=== PATIENT | female | born 1990 | race Caucasian/White ===

== ENCOUNTER 2016-06-14 15:44 | Emergency (ER) | payer OTHER ==
[~2016-06-14] VITALS: Ht 167.6 cm; Wt 60.0 kg
[2016-06-14 15:45] VITALS: BP 120/66; PULSE 100; RESP 16; TEMP 98.2; O2SAT 98
--- NOTE | 2016-06-14 16:23 | PD ---
HPI . right groin cyst and vaginal discharge since March with exposure to 2 STDs Chief Complaint: Skin Problem Time Seen by Provider: 16:23 Travel History International Travel<30 days: No Contact w/Intl Traveler<30days: No Traveled to known affect area: No History of Present Illness HPI 25-year-old female who is a recovering addict here with complaints of right labial boil and vaginal discharge since March with exposure to STDs. Patient tells me that she is 100% certain that she came into contact with trichomoniasis as well as chlamydia. She states this happened back in March and she has not been able to seek treatment and she has been in rehabilitation. She is complaining of vaginal discharge since. [facility] Social History Tobacco Use: Yes Allergies-Medications (Allergen,Severity, Reaction): Coded Allergies: No Known Allergies (Unverified , 06/14/16) Reported Meds & Prescriptions Reported Meds & Active Scripts Active Reported Zoloft (Sertraline HCl) 25 Mg Tab 25 Mg PO DAILY Trazodone (Trazodone HCl) 50 Mg Tab 50 Mg PO HS Review of Systems General / Constitutional: No: Fever Eyes: No: Visual changes HENT: No: Headaches Cardiovascular: No: Chest Pain or Discomfort Respiratory: No: Shortness of Breath Gastrointestinal: No: Abdominal Pain Genitourinary: Positive: Discharge, No: Dysuria Musculoskeletal: No: Pain Skin: No Rash Neurologic: No: Weakness Psychiatric: No: Depression Endocrine: No: Polydipsia Hematologic/Lymphatic: No: Easy Bruising Physical Exam Narrative GENERAL: AAO x 3, no acute distress, Well-nourished, well-developed patient. SKIN: Warm and dry. No visible rashes or bruising. HEAD: Normocephalic and atraumatic. EYES: No scleral icterus. No injection or drainage. ENT: No nasal drainage noted. Mucous membranes pink. Airway patent. NECK: Supple, trachea midline. No JVD. CARDIOVASCULAR: Regular rate and rhythm without murmurs, gallops, or rubs. RESPIRATORY: Breath sounds equal bilaterally. No accessory muscle use. No rhonchi or rales. GASTROINTESTINAL: visual inspection is normal. GENITAL: external exam only: there is a small ingrown hair follicle on the right outer labia. Pelvic exam not performed. EXTREMITIES: No cyanosis or edema. BACK: Nontender without obvious deformity. No CVA tenderness. PSYCH: AAO x 3, normal affect. Data Data Last Documented VS Vital Signs Date Time Temp Pulse Resp B/P Pulse Ox O2 Delivery O2 Flow Rate FiO2 06/14/16 15:45 98.2 100 16 120/66 98 Room Air Orders Gc And Chlamydia Pcr (06/14/16 18:29) Wet Prep Profile (06/14/16 18:29) MDM Medical Decision Making Medical Screen Exam Complete: Yes Emergency Medical Condition: Yes Medical Record Reviewed: Yes (no prior) Differential Diagnosis folliculitis, vaginal discharge, trichomoniasis, chlamydia, PID Narrative Course 25-year-old female who is a recovering addict here with complaints of right labial boil and vaginal discharge since March with exposure to STDs. Patient tells me that she is 100% certain that she came into contact with trichomoniasis as well as chlamydia. She states this happened back in March and she has not been able to seek treatment and she has been in rehabilitation. She is complaining of vaginal discharge since. Patient seen and examined. She has a small folliculitis on the right outer labia. There is not an abscess formation. I could not perform pelvic examination, due to limitations in our exam room. Patient will need to be transferred to a medical bed for further workup and treatment. That medical provider will determine her disposition. Condition: Stable Lilly Hackett Jun 14, 2016 16:23
[2016-06-14] MEDS ORDERED: TRAZ50TA12 PO (16:44)
[2016-06-14] MEDS ORDERED: ZOLO25TA PO (16:44)
--- NOTE | 2016-06-14 17:49 | PD ---
HPI Chief Complaint: Skin Problem Time Seen by Provider: 17:47 Travel History International Travel<30 days: No Contact w/Intl Traveler<30days: No Traveled to known affect area: No History of Present Illness HPI Patient is a 25-year-old female that presented to the emergency department for evaluation of vaginal discharge. Patient states she was exposed to chlamydia and trichomoniasis in March when she was home. Since that time, she states that she was in rehabilitation and did not get treated. She denies any abdominal pain, nausea, vomiting, dysuria. Her last menstrual cycle was 2 weeks ago PFS Past Medical History Depression: Yes Diminished Hearing: No Tetanus Vaccination: < 5 Years Influenza Vaccination: No ?: Not LMP: 2 weeks ago Past Surgical History Surgical History: No Previous Surgery Social History Alcohol Use: No Tobacco Use: Yes (1/2ppd) Substance Use: No Allergies-Medications (Allergen,Severity, Reaction): Coded Allergies: No Known Allergies (Unverified , 06/14/16) Reported Meds & Prescriptions Reported Meds & Active Scripts Active Reported Zoloft (Sertraline HCl) 25 Mg Tab 25 Mg PO DAILY Trazodone (Trazodone HCl) 50 Mg Tab 50 Mg PO HS Review of Systems Except as stated in HPI: all other systems reviewed are Neg Gastrointestinal: No: Nausea, Abdominal Pain Genitourinary: Positive: Discharge, No: Frequency, Dysuria, Pelvic Pain, Vaginal Bleeding Physical Exam Narrative GENERAL: Well-nourished, well-developed patient. SKIN: Focused skin assessment warm/dry. HEAD: Normocephalic. EYES: No scleral icterus. No injection or drainage. NECK: Supple, trachea midline. No JVD or lymphadenopathy. CARDIOVASCULAR: Regular rate and rhythm without murmurs, gallops, or rubs. RESPIRATORY: Breath sounds equal bilaterally. No accessory muscle use. GASTROINTESTINAL: Abdomen soft, non-tender, nondistended. MUSCULOSKELETAL: No cyanosis, or edema. BACK: Nontender without obvious deformity. No CVA tenderness. Data Data Last Documented VS Vital Signs Date Time Temp Pulse Resp B/P Pulse Ox O2 Delivery O2 Flow Rate FiO2 06/14/16 15:45 98.2 100 16 120/66 98 Room Air Orders Gc And Chlamydia Pcr (06/14/16 18:29) Wet Prep Profile (06/14/16 18:29) Urinalysis - C+S If Indicated (06/14/16 18:48) Labs Laboratory Tests Test 06/14/16 06/14/16 16:53 18:33 Urine Color LIGHT-YELLOW Urine Turbidity CLEAR Urine pH 7.5 Urine Specific [place] 1.015 Urine Protein TRACE mg/dL Urine Glucose (UA) NEG mg/dL Urine Ketones NEG mg/dL Urine Occult Blood NEG Urine Nitrite NEG Urine Bilirubin NEG Urine Urobilinogen LESS THAN 2.0 MG/DL Urine Leukocyte Esterase NEG Urine RBC 1 /hpf Urine WBC LESS THAN 1 /hpf Microscopic Urinalysis Comment CULT NOT INDICATED Clue Cells (Wet Prep) NONE SEEN Vaginal Trichomonas (Wet Prep) NONE SEEN Vaginal Yeast (Wet Prep) NONE SEEN MDM Medical Decision Making Medical Screen Exam Complete: Yes Emergency Medical Condition: Yes Interpretation(s) Laboratory Tests Test 06/14/16 06/14/16 16:53 18:33 Urine Color LIGHT-YELLOW Urine Turbidity CLEAR Urine pH 7.5 Urine Specific [place] 1.015 Urine Protein TRACE mg/dL Urine Glucose (UA) NEG mg/dL Urine Ketones NEG mg/dL Urine Occult Blood NEG Urine Nitrite NEG Urine Bilirubin NEG Urine Urobilinogen LESS THAN 2.0 MG/DL Urine Leukocyte Esterase NEG Urine RBC 1 /hpf Urine WBC LESS THAN 1 /hpf Microscopic Urinalysis Comment CULT NOT INDICATED Clue Cells (Wet Prep) NONE SEEN Vaginal Trichomonas (Wet Prep) NONE SEEN Vaginal Yeast (Wet Prep) NONE SEEN Vital Signs Date Time Temp Pulse Resp B/P Pulse Ox O2 Delivery O2 Flow Rate FiO2 06/14/16 15:45 98.2 100 16 120/66 98 Room Air Differential Diagnosis STD versus PID versus Leukorrhea versus other Narrative Course Patient is a 22-year-old female presenting to emergency room for evaluation of vaginal discharge and dysuria. Patient states her symptoms started March and she believes she was exposed to chlamydia and trichomoniasis. She denies any pelvic pain, nausea, vomiting, fever, chills. Vital signs are stable. Pelvic exam performed, there was brown milky discharge noted in vaginal vault. No cervical motion tenderness, no adnexal tenderness or masses noted and bimanual examination. GC and chlamydia pending. Patient will be treated empirically. She is encouraged to follow up with [facility] for further STD screening. She is encouraged to avoid intercourse. She is encouraged to return to emergency department for any new or worsening symptoms. She verbalized understanding of these instructions. Patient is stable for discharge. Diagnosis Primary Impression: STD exposure Referrals: [facility] Dept. Patient Instructions: General Instructions, Safe Sex (ED), Sexually Transmitted Diseases (ED) Additional Instructions: Follow up at the health department for further screening for sexually transmitted infections You will be notified if Chlamydia and/or gonorrhea or positive Return to emergency department for any new or worsening symptoms Med/Other Pt SpecificInfo: No Change to Meds Disposition: 01 DISCHARGE HOME Condition: Stable Gema Pan [facility] Jun 14, 2016 17:49
[2016-06-14 19:07] LABS: BLOOD, URINE NEG (NEG); GLUCOSE,URINE NEG (NEG); KETONE, URINE NEG (NEG); NITRITE,URINE NEG (NEG); PH, URINE 7.5 (5.0-8.5); URINE COLOR LIGHT-YELLOW (YELLW/STRAW)
[2016-06-14 19:08] LABS: COMMENT (UR) CULT NOT INDICATED; CULTURE IF INDICATED CULT NOT INDICATED
[2016-06-14] MEDS ORDERED: AZITHROMYCIN PWD FOR SUSP 1 GM PACKET PO ONE (19:15)
[2016-06-14] MEDS ORDERED: cefTRIAXone 250 MG VIAL IM ONE (19:15)
[2016-06-14] MEDS ORDERED: LIDOCAINE HCL 1% 50 ML VIAL IM ONE (19:15)
[2016-06-14 19:42] VITALS: BP 108/72; PULSE 68; RESP 18; O2SAT 100
[2016-06-14 22:39] LABS: CHLAMYDIA PCR NOT DETECTED (NOT DETECT); NEISSERIA PCR NOT DETECTED (NOT DETECT)
== END 2016-06-14 20:15 | disposition home or self-care (01) ==
LOC: NEPD 15:44
DX: L73.8 Other specified follicular disorders (principal); Z20.2 Contact with and (suspected) exposure to infections with a predominantly sexual mode of transmission; F17.210 Nicotine dependence, cigarettes, uncomplicated; F19.21 Other psychoactive substance dependence, in remission; F41.9 Anxiety disorder, unspecified
CPT/HCPCS: 81001; 87210; 87491; 87591; 96372; 99283; J0696

== ENCOUNTER 2016-06-15 11:22 | Emergency (ER) | payer OTHER ==
[~2016-06-15] VITALS: Ht 167.6 cm; Wt 60.0 kg
[~2016-06-15 11:22] MED LIST: TRAZ50TA12 PO; ZOLO25TA PO
[2016-06-15 11:24] VITALS: BP 119/68; PULSE 86; RESP 16; TEMP 98.7; O2SAT 99
--- NOTE | 2016-06-15 11:51 | PD ---
Physical Exam Date Seen by Provider: Jun 15, 2016 Time Seen by Provider: 11:47 Narrative 25 year old female presents to the emergency department for evaluation of "my right ovary hurts and my uterus feels like it is burning". She states she was seen yesterday and a pelvic exam was completed. She states she was unable to get an outpatient appointment today so she came back for further testing. She says she is concerned because uterine cancer and ovarian cysts run in her family. Vital signs reviewed. Patient awaiting bed placement. Data Data Last Documented VS Vital Signs Date Time Temp Pulse Resp B/P Pulse Ox O2 Delivery O2 Flow Rate FiO2 06/15/16 11:24 98.7 86 16 119/68 99 Room Air [facility] Supervised Visit with NIKOLAY: Joann Turner Jun 15, 2016 11:51
--- NOTE | 2016-06-15 12:18 | PD ---
HPI Chief Complaint: [employer] Advocate Problem/Complaint Time Seen by Provider: 12:11 Travel History International Travel<30 days: No Contact w/Intl Traveler<30days: No Traveled to known affect area: No History of Present Illness HPI Patient is a 25-year-old female presenting to emergency for evaluation of right ovary pain. Patient states that she was told by CUSTOMER ACCOUNT SPECIALIST's office this morning to return to emergency department for evaluation. Patient also reports that her mother told her they have a history of "female cancer" in their family and she needs to get further evaluated. Patient has no other complaints at this time. Patient last menstrual cycle was 2 weeks ago, she has had pain similar to this in the past. Pain has been present for 2 days and is dull and aching. PFSH Past Medical History Depression: Yes Diminished Hearing: No Social History Alcohol Use: No Tobacco Use: Yes Substance Use: No Allergies-Medications (Allergen,Severity, Reaction): Coded Allergies: No Known Allergies (Unverified , 06/14/16) Reported Meds & Prescriptions Reported Meds & Active Scripts Active Reported Zoloft (Sertraline HCl) 25 Mg Tab 25 Mg PO DAILY Trazodone (Trazodone HCl) 50 Mg Tab 50 Mg PO HS Review of Systems Except as stated in HPI: all other systems reviewed are Neg Genitourinary: Positive: Pelvic Pain (right) Physical Exam Narrative GENERAL: Well-nourished, well-developed patient. SKIN: Focused skin assessment warm/dry. HEAD: Normocephalic. EYES: No scleral icterus. No injection or drainage. NECK: Supple, trachea midline. No JVD or lymphadenopathy. CARDIOVASCULAR: Regular rate and rhythm without murmurs, gallops, or rubs. RESPIRATORY: Breath sounds equal bilaterally. No accessory muscle use. GASTROINTESTINAL: Abdomen soft, non-tender, nondistended. +Bowel sounds. MUSCULOSKELETAL: No cyanosis, or edema. BACK: Nontender without obvious deformity. No CVA tenderness. Data Data Last Documented VS Vital Signs Date Time Temp Pulse Resp B/P Pulse Ox O2 Delivery O2 Flow Rate FiO2 06/15/16 11:24 98.7 86 16 119/68 99 Room Air MDM Medical Decision Making Medical Screen Exam Complete: Yes Emergency Medical Condition: No Interpretation(s) Vital Signs Date Time Temp Pulse Resp B/P Pulse Ox O2 Delivery O2 Flow Rate FiO2 06/15/16 11:24 98.7 86 16 119/68 99 Room Air Differential Diagnosis Ovarian cyst versus ovarian torsion versus endometriosis versus fibroid versus other Narrative Course Patient is 25-year-old female returning to the emergency department for evaluation of right ovary pain. Patient was seen and evaluated in the emergency department yesterday , at that time her workup was negative, she had a pelvic exam which was nonfocal, there was no tenderness on bimanual examination. A wet prep, urinalysis, GC and chlamydia were all negative. At this time there is no concern for ovarian torsion, patient has had similar pain in the past, again she had a negative workup yesterday he had patient will be referred to the [facility] note clinic for further routine health care. She was encouraged to return to emergency department for any new or worsening symptoms. She was also seen and evaluated by my attending physician. A medical screening exam was performed: At the time of evaluation the presenting medical condition was determined not to be of an emergent nature. The patient was given the option of receiving additional care, but declined. Patient was given options for additional community resources from which to obtain care. The Patient Has Been advised to seek medical attention for their presenting complaint. The patient has been advised to return to the ER at any time if an emergent condition develops. Diagnosis Primary Impression: Encounter for medical screening examination Referrals: [facility] 1 week Patient Instructions: General Instructions, Pelvic Pain in Women (ED) Additional Instructions: Follow-up the [facility] now clinic Return to emergency department for any new or worsening symptoms Med/Other Pt SpecificInfo: No Change to Meds Condition: Gema Self Jun 15, 2016 12:18
== END 2016-06-15 12:27 | disposition left against medical advice (07) ==
LOC: NEPD 11:22
DX: R10.2 Pelvic and perineal pain (principal)
CPT/HCPCS: 99281